=== PATIENT | female | born 1965 | race Caucasian/White ===

== ENCOUNTER 2020-03-13 14:49 | Outpatient (CLI) | payer OTHER, SELFPAY ==
--- NOTE | ~2020-03-13 | MM_ITS ---
EXAMINATION: MM screening shira BI w alexey HISTORY: Screening mammogram, family history of breast cancer in her mother. TECHNIQUE: Craniocaudal and mediolateral oblique 3-D tomosynthesis images were obtained and synthetic 2-D images were generated. CAD analysis was submitted and interpreted. COMPARISON: 12/07/2017, 07/20/2016, 07/06/2006 BREAST PARENCHYMAL COMPOSITION: The breasts are almost entirely fatty. FINDINGS: There is no evidence of suspicious mass, calcification, or architectural distortion to sugg est malignancy in either breast. There has been no suspicious interval change. IMPRESSION: 1. No mammographic evidence of malignancy. 2. Recommend routine screening mammography in one year. BI-RADS Category 1: Negative Reviewed, dictated and finalized at location A.
--- NOTE | ~2020-03-13 | DEXA_ITS ---
Bone Density Report Name: Christine Urrutia Age: 55 Sex: Female Ethnicity: White Date of : 1965 Indication: postmenopausal; prior fracture; Referring Provider: Rena, Vanessa Study: Bone densitometry was performed. Exam Date: March 13, 2020 Accession number: [id number] Bone Density: Region BMD T-score Z-score Classification AP Spine (L1-L4) 1.121 0.7 1.7 Normal Femoral Neck (Left) 0.744 -0.9 0.1 Normal Total Hip (Left) 0.914 -0.2 0.4 Normal Total Hip Bilateral Avg 0.938 0.0 0.6 Normal Femoral Neck (Right) 0.780 -0.6 0.4 Normal Total Hip (Right) 0.961 0.2 0.8 Normal World Health Organization criteria for BMD impression classify patients as: Normal (T-score at or above -1.0), Osteopenia (T-score between -1.0 and -2.5), or Osteoporosis (T-score at or below -2.5). 10-year Fracture Risk: FRAX not reported because: All T-scores for Spine Total, Hip Total, Femoral Neck at or above -1.0 Clinical Information Provided by Patient: Has had a low trauma fracture Has used the following medications: HRT (i.e. estrogen/hormone therapy), Vitamin D, Calcium Patient maximum height was 69 Menopause Age: 53 Drinks caffeinated beverages Onset of menses at age 13 Number of children 3 Impression: The patient has normal bone mass. The patient has risk factors, including: previous fracture. Discussion: BONE DENSITY IS ABOVE THE MINIMUM DESIRABLE LEVEL AT ALL SKELETAL SITES TESTED. This patient?s bone mineral density is above the minimum desirable level (T-score -1.0 or better) at all sites measured. The patient should follow a healthful lifestyle (good nutrition with adequate calcium and vitamin D, and appropriate weight-bearing exercise). Follow-Up: Consider repeating this study in 5 years or sooner if there is some new clinical indication. Reported by: [facility] on 03/13/2020 3:26:00 PM. Reviewed, dictated and finalized at location APratima NAS[facility]
== END 2020-03-13 14:50 | disposition home or self-care (01) ==
PROVIDERS: Visit Provider Nurse Practitioner
DX: Z12.31 Encounter for screening mammogram for malignant neoplasm of breast (principal); Z78.0 Asymptomatic menopausal state
CPT/HCPCS: 77063; 77067; 77080

== ENCOUNTER 2023-10-01 10:21 | Outpatient (CLI) | payer OTHER, SELFPAY ==
--- NOTE | ~2023-10-01 | US_ITS ---
EXAMINATION: US retroperitoneal comp DATE: 10/01/2023 11:26 INDICATION: Urinary frequency and urgency. Urinary tract infection. TECHNIQUE: Multiple ultrasound grayscale images of the kidneys were obtained. COMPARISON: None. FINDINGS: The right kidney measures 11.5 x 5.4 x 5.4 cm. The left kidney measures 11.2 x 4.9 x 5.1 cm. The kidn eys demonstrate normal parenchymal echogenicity. There is no hydronephrosis. The bladder is normal. IMPRESSION: 1. Normal kidneys and bladder. Reviewed, dictated and finalized at location A.
--- NOTE | ~2023-10-01 | US_ITS ---
EXAMINATION: US pelvic complete DATE: 10/01/2023 11:26 INDICATION: Urinary urgency. TECHNIQUE: Multiple transabdominal sonographic images of the pelvis were obtained. COMPARISON: None. FINDINGS: The uterus measures 7.9 x 3.1 x 4.6 cm. There is no free fluid in the pelvis. The endometrial complex measures 3 mm in thickness. The right ovary is not visualized. The left ovary measures 2.4 x 1.2 x 2 .0 cm. There is normal vascular flow in left ovary. IMPRESSION: 1. Normal uterus and left ovary. Right ovary not visualized. Reviewed, dictated and finalized at location A.
== END 2023-10-01 10:22 ==
PROVIDERS: PCP Physician Assistant; Visit Provider Physician Assistant
DX: R39.15 Urgency of urination (principal); R39.9 Unspecified symptoms and signs involving the genitourinary system
CPT/HCPCS: 76770; 76856

== ENCOUNTER 2023-10-01 11:24 | Outpatient (CLI) | payer OTHER, SELFPAY ==
--- NOTE | ~2023-10-01 | MM_ITS ---
EXAMINATION: MM screening shira BI w alexey HISTORY: Screening TECHNIQUE: Craniocaudal and mediolateral oblique 3-D tomosynthesis images were obtained and synthetic 2-D images were generated. CAD analysis was submitted and interpreted. COMPARISON: Comparison to multiple prior studies sequentially, with oldest reviewed study dated 11/2016. BREAST PARENCHYMAL COMPOSITION: Not dense: There are scattered areas of fibroglandular density. FINDINGS: There is no evidence of suspicious mass, calcification, or architectural distortion to sugg est malignancy in either breast. There has been no suspicious interval change. IMPRESSION: 1. No mammographic evidence of malignancy. 2. Recommend routine screening mammography in one year. BI-RADS CATEGORY 1 - NEGATIVE Reviewed, dictated and finalized at location A.
== END 2023-10-01 11:25 | disposition home or self-care (01) ==
PROVIDERS: PCP Physician Assistant; Visit Provider Nurse Practitioner
DX: Z12.31 Encounter for screening mammogram for malignant neoplasm of breast (principal)
CPT/HCPCS: 77063; 77067